=== PATIENT | female | born 1970 | race Hispanic/Latino ===

== ENCOUNTER 2018-01-08 00:55 | Emergency (ER) | payer BC ==
[~2018-01-08] VITALS: Ht 149.9 cm; Wt 117.6 kg
[~2018-01-08 00:55] MED LIST: ACTOS30 MG PO; AMOXICILLIN875 MG OR; BENADRYL 50MG C50 MG OR; CIPRO XR500 MG PO; CRESTOR10 MG PO; DOCUSATE SOD100 M2 PO; FLEXERIL OR; FUROSEMIDE80 MG PO; GLIPIZIDE XL5 MG PO; HYDROCO/APAP1 T10 OR; LANTUS100 MG/ML SC; LISINOPRIL10 MG PO; LORTAB 5 OR; LORTAB 7.5 OR; MEDDOSEPAK OR; METFORMIN500 M1 PO; NAPROSYN250 MG OR; NAPROSYN500 MG PO; PENICILLN VK500 M1 OR; PENICILLN VK500 MG OR; PEPCID20 MG PO; PERCOCET1 TA4 PO; PREVACID30 M1 OR; PREVACID30 M1 PO; SULFACET SOD10 % OU; TIZANIDINE4 MG PO; TOPIRAMATE50 MG PO; TRAMADOL HCL50 MG OR; TRIAM/HCTZ1 CAP OR; TYLENOL # 31 TAB OR; ULTRAM50 MG OR; VENTOLIN HFA IN; ZOFRAN ODT4 MG OR
[2018-01-08 01:46] LABS: HEMOGLOBIN 10.7 g/dl (12.0-16.0); IMMATURE GRANULOCYTES 0.3 % (0.0-1.0); MEAN CORPUSCULAR HGB 29.2 pG CALC (26.0-32.0); MEAN CORPUSCULAR HGB CONC 31.5 g/L CALC (32.0-36.0); NEUT# 3.87 thou/uL (2.00-7.15); RED BLOOD COUNT 3.66 mill/uL (4.20-5.60); RED CELL DISTRI WIDTH 15.4 % (11.5-15.5)
[2018-01-08 01:47] LABS: MEAN CELL VOLUME 92.9 fL CALC (80.0-100.0)
[2018-01-08 01:59] LABS: ALBUMIN 3.4 g/dL (3.2-5.0); ALKALINE PHOSPHATASE 75 u/l (38-126); ANION GAP 11 (6-22 (CALC)); BILIRUBIN, TOTAL 0.4 mg/dL (0.0-1.4); BUN 20 mg/dL (7-17); BUN/CREATININE RATIO 25 (12-20 (CALC)); CARBON DIOXIDE 23 mmol/l (22-30); CHLORIDE 104 mmol/l (95-108); CREATININE 0.8 mg/dL (0.5-1.0); GFR > 60 ML/MIN (>=60 (CALC)); GFR FOR AFR.AMER. > 60 ML/MIN (>=60 (CALC)); POTASSIUM 4.4 mmol/l (3.5-5.1); SGOT/AST 21 u/l (14-36); SGPT/ALT 37 u/l (9-52); SODIUM 134 mmol/l (137-146); TOTAL PROTEIN 6.5 g/dL (6.3-8.2)
[2018-01-08] MEDS ORDERED: PEPCID20 MG PO (02:24)
[2018-01-08] MEDS ORDERED: BENADRYL 50MG C50 MG PO (02:24)
[2018-01-08 02:29] VITALS: BP 132/65
== END 2018-01-08 02:39 | disposition home or self-care (01) | DRG 607 ==
LOC: ED 00:55
PROVIDERS: Emergency Medicine
DX: L29.9 Pruritus, unspecified (principal); F41.9 Anxiety disorder, unspecified; I10 Essential (primary) hypertension; E11.9 Type 2 diabetes mellitus without complications; Z79.4 Long term (current) use of insulin

== ENCOUNTER 2019-07-08 | Day surgery (SDC) | payer BC ==
[~2019-07-08] MED LIST changes: +BENADRYL 50MG C50 MG PO; +FENTANYL25 MCG/HR TD; +HORIZANT300 MG PO; +LANTUS100 UNIT/M SC; +MELOXICAM15 MG PO; +OMEPRAZOLE20 MG PO; +POTASSIUM CHLO20 MEQ PO; +VICTOZA18 MG/3 ML SC
== END 2019-07-08 10:05 | disposition home or self-care (01) | DRG 379 ==
PROC: 0DB78ZX Excision of Stomach, Pylorus, Via Natural or Artificial Opening Endoscopic, Diagnostic (ICD-10-PCS; principal; 2019-07-08)
PROC: 0DJD8ZZ Inspection of Lower Intestinal Tract, Via Natural or Artificial Opening Endoscopic (ICD-10-PCS; 2019-07-08)
DX: K29.51 Unspecified chronic gastritis with bleeding (principal); K64.8 Other hemorrhoids; K21.9 Gastro-esophageal reflux disease without esophagitis; E11.9 Type 2 diabetes mellitus without complications; Z79.4 Long term (current) use of insulin